=== PATIENT | male | born 1965 | race Caucasian/White ===

== ENCOUNTER 2018-08-08 14:42 | Emergency (ER) | payer OTHER, MEDICAID, SELFPAY ==
[2018-08-08 14:48] VITALS: BP 178/87; PULSE 89; RESP 18; TEMP 36.7; O2SAT 98; BMI 32.8
--- NOTE | 2018-08-08 14:52 | DI.RAD.S_ITS ---
PROCEDURE: XR SHOULDER RT MIN 2V INDICATIONS: PAIN, INJURY TECHNIQUE: 3 views of the shoulder were acquired. COMPARISON: None. FINDINGS: Bones: No fractures or dislocations. No suspicious bony lesions. Visualized ribs appear intact. Moderate joint degeneration Soft tissues: No suspicious soft tissue calcifications. IMPRESSION: Moderate right shoulder joint degeneration Dictated by: Choco Lutz M.D. on 08/08/2018 at 15:35 Approved by: Choco Lutz M.D. on 08/08/2018 at 15:36
[2018-08-08] MEDS: KETOROLAC 60 MG/2 ML VIAL IM (17:25)
[2018-08-08 17:29] VITALS: PULSE 70
[2018-08-08 17:36] VITALS: BP 159/93; PULSE 85; RESP 18; O2SAT 95
--- NOTE | 2018-08-08 21:09 | ED.UPPEXIN ---
HPI - Extremity Injury (Upper) <ROBERTO Aguilar - Last Filed: 08/08/18 21:14> General Chief Complaint: Extremity Injury, Upper Stated Complaint: Rt should pain Time Seen by Provider: 08/08/18 17:12 Source: patient Mode of arrival: ambulatory Limitations: no limitations History of Present Illness HPI narrative: The patient is a 52-year-old male with history of seasonal allergies with chief complaint of right shoulder pain. He states he was throwing a tire on a shot and felt a pop in his shoulder. He has a history of 2 rotator cuff repairs. He has not had anything for pain or applied ice. He complains of decreased range of motion. He denies any numbness or tingling. He denies any other injury. He states he knows he has a torn rotator cuff again. Related Data Previous Rx's Medication Instructions Recorded cetirizine 10 mg PO QDAY #90 tab 01/04/16 ketorolac 10 mg PO Q4-6H PRN 2 Days #8 tab 08/08/18 Allergies Allergy/AdvReac Type Severity Reaction Status Date / Time No Known Drug Allergies Allergy Verified 08/08/18 14:47 Review of Systems <ROBERTO Aguilar - Last Filed: 08/08/18 21:14> Review of Systems GENERAL: Denies chills, fatigue, malaise, fever, sweats. HEENT: Denies sinus pain, ear pain, sore throat, difficulty swallowing, dizziness. RESPIRATORY: Denies dyspnea, cough, wheezing, hemoptysis, sputum. CARDIOVASCULAR: Denies chest pain, palpitations, orthopnea, edema, GASTROINTESTINAL: Denies nausea, vomiting, abdominal pain, diarrhea, constipation, melena. : Denies dysuria, frequency, incontinence, hematuria, urinary retention. MUSCULOSKELETAL: See HPI SKIN: Denies rash, skin lesions, or other NEUROLOGIC: Denies weakness, headache, numbness, change in speech, confusion, seizures, incoordination. PSYCHIATRIC: No concerning psychosocial issues. 12 point review of systems is negative except for those stated above PFSH <ROBERTO Aguilar - Last Filed: 08/08/18 21:14> Medical History (Updated 08/08/18 @ 21:10 by ROBERTO Aguilar) Seasonal allergies (Acute) Surgical History (Updated 08/08/18 @ 21:10 by ROBERTO Aguilar) S/P rotator cuff repair (Acute) Social History Smoking Status: Current every day smoker Social History Smoking Status: Current every day smoker Exam <ROBERTO Aguilar - Last Filed: 08/08/18 21:14> Narrative Exam Narrative: GENERAL: This is a well-nourished, well-developed patient, no acute distress sitting in the hallway HEAD: Atraumatic. Normocephalic. No temporal or scalp tenderness. EYES: Pupils equal round and reactive. Extraocular motions intact. No scleral icterus. No injection or drainage. NECK: Trachea midline. No JVD or lymphadenopathy. Supple, nontender, no meningeal signs. CARDIOVASCULAR: Regular rate and rhythm RESPIRATORY: Clear to auscultation. Breath sounds equal bilaterally. No wheezes, rales, or rhonchi no cough. No increased respiratory effort. EXTREMITIES: Generalized pain to palpation right ankle. Patient has reduced extension to 90?. Able to abduct and adduct. Not able to perform empty can test. Positive radial pulse right hand. BACK: Nontender without deformity or crepitance. No flank tenderness. NEURO: AOx3. SKIN: No rash ecchymosis or abrasion noted right ankle. Initial Vital Signs Initial Vital Signs: Vital Signs Temperature 98.1 F 08/08/18 14:48 Pulse Rate 89 08/08/18 14:48 Respiratory Rate 18 08/08/18 14:48 Blood Pressure 178/87 H 08/08/18 14:48 Pulse Oximetry 98 08/08/18 14:48 <Maria Teresa Carpio DO - Last Filed: 08/09/18 07:35> Initial Vital Signs Initial Vital Signs: Vital Signs Temperature 98.1 F 08/08/18 14:48 Pulse Rate 89 08/08/18 14:48 Respiratory Rate 18 08/08/18 14:48 Blood Pressure 178/87 H 08/08/18 14:48 Pulse Oximetry 98 08/08/18 14:48 Course <ROBERTO Aguilar - Last Filed: 08/08/18 21:14> Orders Ordered: Discontinued Medications Ketorolac Tromethamine (Toradol) 60 mg IM NOW ONE Stop: 08/08/18 17:17 Last Admin: 08/08/18 17:25 Dose: 60 mg Vital Signs - 8 hr 08/08/18 14:48 08/08/18 17:29 08/08/18 17:36 Temperature 98.1 F Pulse Rate 89 85 Pulse Rate [Right Radial] 70 Respiratory Rate 18 18 Blood Pressure 178/87 H Blood Pressure [Right Arm] 159/93 H Pulse Oximetry 98 95 <Maria Teresa Carpio DO - Last Filed: 08/09/18 07:35> Orders Ordered: Discontinued Medications Ketorolac Tromethamine (Toradol) 60 mg IM NOW ONE Stop: 08/08/18 17:17 Last Admin: 08/08/18 17:25 Dose: 60 mg Vital Signs - 8 hr 08/08/18 14:48 08/08/18 17:29 08/08/18 17:36 Temperature 98.1 F Pulse Rate 89 85 Pulse Rate [Right Radial] 70 Respiratory Rate 18 18 Blood Pressure 178/87 H Blood Pressure [Right Arm] 159/93 H Pulse Oximetry 98 95 MDM - Extremity Injury (Upper) <ROBERTO Aguilar - Last Filed: 08/08/18 21:14> Imaging Data right shoulder: Radiologist's impression: Francis Nguyễn 52 M 1965 [place] [address] XRay Report Signed Patient: Francis Nguyễn WMR#: [id number] : 1965Acct:[id number] Age/Sex: 52 / MDate of Service: 08/08/18 Loc: ED Accession Number: [id number] Procedure: XR shoulder RT min 2V Ordering Provider: Maria Teresa Carpio D.O. PROCEDURE: XR SHOULDER RT MIN 2V INDICATIONS: PAIN, INJURY TECHNIQUE: 3 views of the shoulder were acquired. COMPARISON: None. FINDINGS: Bones: No fractures or dislocations. No suspicious bony lesions. Visualized ribs appear intact. Moderate joint degeneration Soft tissues: No suspicious soft tissue calcifications. IMPRESSION: Moderate right shoulder joint degeneration Dictated by: Choco Lutz M.D. on 08/08/2018 at 15:35 Approved by: Choco Lutz M.D. on 08/08/2018 at 15:36 MDM Narrative Medical decision making narrative: The patient is a 52-year-old male who presents with a right shoulder injury. He has reduced range of motion. He has a negative x-ray. Given his history, I am concerned about a repeat rotator cuff injury. He was given Toradol in the emergency department I gave a prescription thereof with a strict instructions to not to take any other anti-inflammatories or NSAIDs with it including Aleve ibuprofen etc. Encouraged patient to follow up with primary care provider. Discussed return precautions the emergency department including any acute concerns such as chest pain shortness of breath Discharge Plan Departure Patient Disposition: Home Clinical Impression: Acute pain of right shoulder Discharge Date/Time: 08/08/18 17:41 Interventions: ED Discharge Assessment Last Done: 08/08/18 17:41 Instructions: How To Perform RICE (Rest, Ice, Compress, Elevate), DI for Shoulder Pain Activity Restrictions/Additional Instructions: Your x-rays came back without fracture. However concerned about orders range of motion. Please follow up with your primary care provider regarding her decreased range of motion. I have also given you contact information for [facility]. Please use rest ice compression elevations well as the Toradol pain medication that I gave you. Do not combine it with any other anti-inflammatory medications. Please come back to the emergency department for any acute concerns that his chest pain shortness of breath etc. Prescriptions: New ketorolac 10 mg tablet 10 mg PO Q4-6H PRN (Reason: pain) 2 Days Qty: 8 RF: 0 No Action cetirizine 10 MG tablet 10 mg PO QDAY Qty: 90 RF: 3 Referrals: [facility] [Outside] <Maria Teresa Carpio DO - Last Filed: 08/09/18 07:35> [facility] ED Attending Ramandeep Attestation: I was immediately available in the department for consultation. This documentation has been reviewed and I agree with assessment and plan. Supervised by Maria Teresa Carpio DO
== END 2018-08-08 17:41 | disposition home or self-care (01) ==
PROVIDERS: Emergency Provider Nurse Practitioner Family
DX: M25.511 Pain in right shoulder (principal)
CPT/HCPCS: 73030; 96372; 99282; 99283; J1885

== ENCOUNTER 2019-01-25 10:16 | Day surgery (SDC) | payer OTHER, MEDICAID, SELFPAY ==
[2019-01-22 12:53] VITALS: BMI 32.2
[2019-01-25] VITALS (7 sets, daily range): BP systolic 138–149; BP diastolic 73–83; PULSE 65–78; RESP 12–18; TEMP 36.3–37.1; O2SAT 93–98; BMI 31.1
[2019-01-25] MEDS: LACTATED RINGERS 1,000 ML 42 ML IV ×2 (11:07→14:38)
--- NOTE | 2019-01-25 12:04 | PM.PREOP ---
Pre-operative Note Interval Note History & Physical reviewed/Exam performed by Physician: Yes Changes to H&P: No
[2019-01-25] MEDS: MIDAZOLAM 2 MG/2 ML VIAL IV (12:38)
[2019-01-25] MEDS: CEFAZOLIN 2 GM/100 ML FROZ.PIGGY IV (13:01)
--- NOTE | 2019-01-25 13:19 | P.PCN_ITS ---
Procedures Date/Time Date of procedure: 01/25/19 Time of procedure: 13:00 Nerve Block Time out performed: Yes Local anesthetic used: other (15mL 0.5 ropivacaine, 5mL 2 l* idocaine) Location of anesthetic used: interscalene Amount of anesthesia used (mL): 20 Nerve blocks: brachial plexus (interscalene) Procedure successful: Yes Patient tolerated procedure: well Complications: none Additional comments: RIGHT Brachial plexus nerve block for post operative pain management. Risks and benefits discussed, including bleeding, infection, intravascular injection, nerve damage, block failure. Standard ASA monitors, NC O2. Pt supine. Chloroprep site preparation, sterile technique. Brachial plexus identified with US guidance, traced from supraclavicular to interscalene. 1mL 2% lidocaine skin wheal. 22g x 50mm Pajunk advanced with in-plane US g uidance to brachial plexus. Negative aspiration. LA injected with intermittent negative aspiration. Good LA spread noted on US. No pain, no paraesthesia. Pt tolerated procedure well. Vital signs stable.
--- NOTE | 2019-01-25 13:47 | SUR.OPER ---
Lateral on padded OR bed with andrea bag positioner, head on pillow, gel axillary roll in place, bottom leg bent with gel pad under knee to foot, upper leg straight and supported with pillows. Operative arm secured in shoulder positioning suspension device. non-operative arm secured on padded arm board. Safety belt at hip, tape over blanket securing lower legs and at chest level over blanket.
[2019-01-25] MEDS: BUPIVACAINE 0.5% W/ EPI (PF) VIAL 30 ML INJ (13:55)
[2019-01-25] MEDS: SODIUM CHLORIDE IRRIG SOLUTION 3,000 ML, EPINEPHrine 1 MG IRR (14:46)
--- NOTE | 2019-01-25 15:31 | PM.OP.1 ---
Operative Date/Time/Diagnoses Date of procedure: 01/25/19 Time of procedure: 15:00 Pre-op diagnosis: 1. Rotator cuff tear of supraspinatus and subscapularis 2. Biceps dislocation Post-op diagnosis: same Procedure & Clinicians Procedure: 1. Arthroscopic rotator cuff repair of subscapularis and supraspinatus 2. Arthroscopic biceps tenodesis Same procedure as scheduled: Yes Indications: The patient is a 53-year-old man who has had a previous rotator cuff repair done elsewhere. This has gone on to fail. It appears that this was exclusively of the supraspinatus. On MRI he also has a biceps dislocation and tearing of the subscapularis. His he agreed to revision surgery after discussion of the risks benefits and alternatives. Risks discussed included but were not limited to: Failure to improve, stiffness, infection, nerve damage, deep venous thrombosis, pulmonary embolism, stroke, myocardial infarction, permanent paralysis and . Surgeon: Puma Doty Test Equipment Mechanic: Josue Olivo Click Yes if Unassisted: No Anesthesia Type: General, Peripheral nerve block and Local Operative Notes Findings: 1. Mild degeneration of glenohumeral cartilage specifically fraying of the glenoid 2. Mild fraying of the glenoid labrum 3. Intact glenohumeral ligaments with the exception of the superior glenohumeral ligament 4. Tearing of the superior portion of the subscapularis with dislocation of the biceps into the joint. 5. Dislocation of an intact biceps tendon 6. Tearing of the supraspinatus as a separate tear posterior to the insertion of the ?comma? tissue 7. Intact infraspinatus 8. Normal axillary pouch 9. 1 cm anterior to posterior with 2 cm medial-lateral dimension tear of the supraspinatus as measured in the bursa. 10. Slight curve to the acromion residual from prior surgery this was left intact 11. Acromioclavicular joint not visualized due to lack of preoperative symptoms 12. Examination under anesthesia notable for full range of motion and no evidence for pathologic laxity. Closure Type: primary Specimen(s): none sent Prosthetic devices, grafts, tissues, transplants, or devices: One Arthrex Swivelock anchor, one Mitek Healix Advance BR triple threaded anchor Applied: implant(s) Estimated Blood Loss (mL): 5 Blood products transfused: none Procedure in detail: The patient was seen in the preoperative area where he identified the right shoulder as the operative site this was marked with my initials. He received preoperative antibiotics and was taken to the operating room after receiving an interscalene block. He was placed on the operating room table in supine position where he underwent a general anesthetic. His shoulder was examined under anesthesia with the result given above. He was repositioned in the left lateral decubitus position with an axillary roll and padding for all pressure points. He was stabilized in this position using the andrea bag. Tape was applied to stabilize him as well. His right arm was prepared from the fingertips to the base of the neck with ChloraPrep and draped through sterile drapes. The arm was placed in 10 lb of balanced skin suspension. The subcutaneous landmarks were outlined on the skin with a marking pen. Portal sites were selected. The posterior portal was created for the arthroscope and diagnostic arthroscopy in the glenohumeral joint ensued. An anterior superior lateral portal was created with needle localization. An 8.5 mm cannula was placed in this portal. This portal was used to place a fiber stick suture with a loop around the biceps. It was then pulled through the biceps using a penetrating suture grasper just distal to the circumferential loop to complete and half racking stitch. The biceps was then cut and the suture was placed exterior to the cannula to protect it. The shaver was then inserted to debride the biceps stump and to prepare the lesser tuberosity. A FiberTape suture was then placed through the upper subscapularis tendon. A 2nd working cannula of 5.5 mm diameter was placed through an anterior portal again after localizing with a needle. This portal was used to retrieve the sutures and FiberTape and place the Swivelock anchor in the prepared upper tuberosity. Prior to placement the FiberTape and fiber stick sutures were placed through the eyelet of the anchor and the anchor was placed to both repair the subscap and tenodese the biceps. The arthroscope was then withdrawn from the joint and placed in the subacromial bursa through the posterior portal. The rotator cuff tear in the supraspinatus was identified from the bursal side and the working 8.5 mm cannula moved to a lateral portal in line with the tear. The greater tuberosity was prepared to bleeding bone using a shaver and a bur. The single Mitek Healix Advance BR anchor was then placed in the center of the exposed tuberosity. Two of the sutures were placed as side to side sutures and the 3rd suture was placed medially as a simple suture. The 2 side to side sutures were tied 1st followed by the simple suture over both of them to accomplish a grasping suture configuration. This completely repaired the supraspinatus tear and this was confirmed from the posterior portal, the lateral portal and from the intra-articular view. At this point all arthroscopic equipment was removed and closure of the portals performed with 4 0 Monocryl and Steri-Strips. A total of 20 mL of 0.5% Marcaine was injected with half of it into the subacromial space and half in the subcutaneous tissues. The wounds were dressed with sterile 4x4s, an ABD and adhesive dressings. The arm was placed in a shoulder immobilizer. The patient was allowed to awaken from anesthesia and taken to the recovery room in good condition having tolerated the procedure well. Complications: none Post-operative Condition: stable Disposition: PACU Plan for aftercare: The patient will be maintained on a standard subscapularis repair protocol. He will be discharged today.
== END 2019-01-25 15:59 | disposition home or self-care (01) ==
PROVIDERS: PCP Family Medicine; Visit Provider Orthopaedic Surgery
PROC: (CPT 29827; principal; 2019-01-25 12:45)
DX: S46.011A Strain of muscle(s) and tendon(s) of the rotator cuff of right shoulder, initial encounter (principal); G89.18 Other acute postprocedural pain; I10 Essential (primary) hypertension; E78.5 Hyperlipidemia, unspecified; F17.210 Nicotine dependence, cigarettes, uncomplicated
CPT/HCPCS: 29827; 29828; 64415; J0171; J0690; J1100; J2250; J2405; J2704; J3010

== ENCOUNTER → 2020-08-08 11:56 | Outpatient (CLI) | payer OTHER, MEDICAID, SELFPAY ==
--- NOTE | 2020-08-08 | DI.MRI.S_ITS ---
PROCEDURE: MR LUMBAR SPINE WO CON INDICATIONS: Radiculopathy, lumbar region,Strain of muscle(s) a TECHNIQUE: Noncontrast sagittal T1 spin echo and T2 fast echo, sagittal STIR, axial T1 and T2 fast spin echo through the lumbar spine. In cases with scoliosis, additional coronal T2 fast spin echo may be performed. COMPARISON: CR, L-SPINE 2-3 VIEWS, 02/27/2015, 20:26. FINDINGS: Image quality: Excellent. Alignment and Curvature: There is normal bony alignment. Bone Marrow: Marrow is of normal overall signal. Minimal reactive endplate changes are present at L1-L2, L2-3, L3-4. No acute vertebral body compression fractures. Spinal Cord: Conus medullaris terminates at the L1 level. Visualized cord demonstrates normal signal. There is an overall appearance of congenital spinal stenosis. Paraspinous Soft Tissues: No paravertebral masses. Increased T2 signal is present within the left kidney most suggestive of cyst. Discs: Moderate to severe desiccation is present at L1-L2, L2-3, mild to moderate throughout the remainder of the lumbar spine. L1-L2: Mild disc bulge with moderate spinal stenosis. Asrc-yj-rejlagbr bilateral foraminal narrowing with facet and ligamentum flavum hypertrophy are are present. Epidural lipomatosis is present. L2-L3: Mild disc bulge with severe spinal stenosis and minimal canal compression. Minimal bilateral foraminal narrowing with facet and ligamentum flavum hypertrophy. Epidural lipomatosis is present. L3-L4: Mild disc bulge with severe spinal stenosis and moderate canal compression. Moderate bilateral foraminal narrowing with facet and ligamentum flavum hypertrophy. Epidural lipomatosis is present. L4-L5: Mild disc bulge with severe spinal stenosis and canal compression. [id number] bilateral foraminal narrowing particularly through the subarticular recesses bilaterally. Facet and ligamentum flavum hypertrophy as well as epidural lipomatosis are present. L5-S1: Mild disc bulge with severe spinal stenosis. Moderate bilateral foraminal narrowing with facet and ligamentum flavum hypertrophy. Prominent epidural lipomatosis is present. IMPRESSION: 1. Significant multilevel spinal stenosis secondary to disc bulge with contributing effect of facet/ligamentum flavum arthropathy, epidural lipomatosis as well as what appears to be a component of underlying congenital stenosis. 2. Multilevel foraminal narrowing overall [id number] and most notable at L3-4 and L5-S1 foramina secondary to facet arthropathy. Dictated by: Kim Zaman, M.D. on 08/08/2020 at 15:08 Approved by: Kim Zaman M.D. on 08/08/2020 at 15:14
--- NOTE | 2020-08-08 | DI.MRI.S_ITS ---
PROCEDURE: MR SHOULDER LT WO CON INDICATIONS: Radiculopathy, lumbar region,Strain of muscle(s) TECHNIQUE: Noncontrast oblique coronal T2 fast spin echo with fat saturation, oblique sagittal T1 spin echo and T2 fast spin echo with fat saturation, axial T1 spin echo and T2 fast spin echo with fat saturation through the shoulder. COMPARISON: None. FINDINGS: Rotator cuff: 1.1 cm full-thickness tear involving the supraspinatus tendon as measured on sagittal pulse sequences. This measures 6 mm on coronal pulse sequences, for example image 9/8. Background supraspinatus tendinopathy. There is also infraspinatus tendinopathy and thickening with low-grade bursal and articular surface fraying. The teres minor appears intact. High-grade partial-thickness articular sided tear of the subscapularis tendon greater than 50% of tendon thickness. Atrophy of the subscapularis muscle is present. There is diffuse fatty infiltration of the rotator cuff muscles. Bones and bursae: No bone marrow contusions or fractures. Severe hypertrophic acromioclavicular joint degeneration. Acromion demonstrates conventional anatomy, without an os acromiale. Small joint effusion. Capsule and soft tissues: Labrum: Mild fraying of the superior labrum. Prominent truncation of the posterosuperior labral segment although this may be chronic tear. There is adjacent mild glenoid rim sclerosis and spurring. Biceps: Medial subluxation of the long head biceps tendon, and severe tendinopathy of the intra-articular segment. Rotator interval: Near complete obliteration of the subcoracoid fat signal intensity. Coracohumeral ligament: Intact. IMPRESSION: Full-thickness rotator cuff tear as above. Atrophy of the subscapularis muscle. Small joint effusion. Chronic appearing tear of the posterosuperior labrum. Marked medial subluxation of the long head biceps tendon, with severe tendinopathy. No definite complete rupture. Dictated by: Choco Lutz M.D. on 08/08/2020 at 14:53 Approved by: Choco Lutz M.D. on 08/08/2020 at 15:01
== END ==
PROVIDERS: PCP Family Medicine; Referring Provider Family Medicine; Visit Provider Family Medicine
DX: M51.16 Intervertebral disc disorders with radiculopathy, lumbar region (principal); M19.012 Primary osteoarthritis, left shoulder; M47.26 Other spondylosis with radiculopathy, lumbar region; M47.27 Other spondylosis with radiculopathy, lumbosacral region; M48.07 Spinal stenosis, lumbosacral region; M48.061 Spinal stenosis, lumbar region without neurogenic claudication; S46.012D Strain of muscle(s) and tendon(s) of the rotator cuff of left shoulder, subsequent encounter; S46.112A Strain of muscle, fascia and tendon of long head of biceps, left arm, initial encounter; M25.412 Effusion, left shoulder; X58.XXXD Exposure to other specified factors, subsequent encounter
CPT/HCPCS: 72148; 73221

== ENCOUNTER → 2024-06-03 07:48 | Outpatient (CLI) | payer OTHER, SELFPAY ==
--- NOTE | 2024-06-03 07:50 | DI.NM.S_ITS ---
PROCEDURE: NM CAIT PERF SPECT R&S PHARM Rest and pharmacological stress myocardial perfusion SPECT with gated imaging and ejection fraction RADIOPHARMACEUTICAL: 12.3 mCi Tc-99m tetrafosmin IV at rest and 25.7 mCi Tc-99m tetrafosmin IV at peak effect of pharmacological stress. 2-iaa-mleaosff was performed. INDICATIONS: BRACHIOCEPHALIC STENOSIS - SCREEN FOR OTHER PAD PQRS ATTESTATIONS: Measure 322 - Is this imaging test primarily performed on a low-risk surgery patient for preoperative evaluation within 30 days preceding their low-risk non-cardiac surgery? Low-risk surgery is defined as cardiac or myocardial infarction less than 1%, including (but not limited to) endoscopic procedures, superficial procedures, cataract surgery, and excisional breast surgery: Answer: No Measure 323 - Is this imaging test performed primarily for the monitoring of an asymptomatic patient who had percutaneous coronary intervention on the visit date or within 2 years of the visit date? Answer: No Measure 324 - Is this imaging test performed primarily for the initial detection and risk assessment on an asymptomatic, low coronary heart disease patient? Low CHD risk definition = clinicians should consider the maximum number of available patient factors used to estimate risk based on Pierce (ATP III criteria), typically age, gender, diabetes, smoking status, and use of blood pressure medication, and integrate age appropriate estimates for missing elements, such as LDL or standard blood pressure. Answer: No TECHNIQUE: Radiopharmaceutical was injected at peak stress test, and also at rest. SPECT images were obtained. SPECT myocardial perfusion images were displayed in short axis, horizontal long axis, and vertical long axis views. Gated images were reviewed using [employer] software. COMPARISON: None. CARDIAC STRESS: A pharmacologic stress test was performed under the supervision of an attending staff, using an infusion of 0.4 mg of Lexiscan. Hemodynamic data: There is normal blood pressure and heart rate response to pharmacologic stress. Symptoms: The patient denied anginal chest pain. Aminophylline: None EKG: No diagnostic changes of ischemia; no ectopy. FINDINGS: Raw data: There is good myocardial uptake of radiotracer. No significant motion artifacts. Ljzf-dt-wcevn ratio is 0.25 (normal is less than 0.38 for tetrafosmin tracer). Left ventricle function: Gated images demonstrate normal left ventricular wall thickening. No segmental wall motion abnormalities. No transient ischemic dilation; TID is 1.21 (normal less than 1.3). Left ventricle resting end diastolic volume is 122 mL. Left ventricle stress ejection fraction is 73; normal range is above 45%. Myocardial perfusion: Rest images had moderate hypoperfusion in the basal to mid inferior segment. No other perfusion defects noted. Stress images demonstrated a slight improvement in the perfusion at the basal to mid inferior segment. Prone images had no perfusion defects. This most likely represents attenuation. IMPRESSION: 1. Negative Lexiscan myocardial perfusion scan for ischemia and infarction. Dictated by: Major Isaacs M.D. on 06/03/2024 at 16:34 Approved by: Major Isaacs M.D. on 06/03/2024 at 16:36
--- NOTE | 2024-06-03 07:51 | DI.US.S_ITS ---
PROCEDURE: US ART LOW EXT BILAT W/JAYLYN INDICATIONS: BRACHIOCEPHALIC STENOSIS - SCREEN FOR OTHER PAD TECHNIQUE: Color and pulse Doppler interrogation was performed of both lower extremity arterial systems, with image documentation. COMPARISON: None. FINDINGS: Right lower extremity: Common femoral artery: 72 cm/sec, with triphasic flow. Deep femoral artery: 53 cm/sec, with monophasic flow. Proximal superficial femoral artery: 51 cm/sec, with biphasic flow. Mid superficial femoral artery: 51 cm/sec, with biphasic flow. Distal superficial femoral artery: 38 cm/sec, with biphasic flow. Popliteal artery: 42 cm/sec, with monophasic flow. Posterior tibial artery: 32 cm/sec, with monophasic flow. Anterior tibial artery/dorsalis pedis: 20 cm/sec, with biphasic flow. Alvarez-scale imaging description: Moderate atherosclerotic disease present. JAYLYN: 0.79, with blunted waveforms. Left lower extremity: Common femoral artery: 100 cm/sec, with triphasic flow. Deep femoral artery: 54 cm/sec, with biphasic flow. Proximal superficial femoral artery: 102 cm/sec, with triphasic flow. Mid superficial femoral artery: 70 cm/sec, with biphasic flow. Distal superficial femoral artery: 52 cm/sec, with biphasic flow. Popliteal artery: 45 cm/sec, with biphasic flow. Posterior tibial artery: 43 cm/sec, with biphasic flow. Anterior tibial artery/dorsalis pedis: 46 cm/sec, with biphasic flow. Alvarez-scale imaging description: Moderate atherosclerotic disease present. JAYLYN: 0.98. Normal waveforms. Bilateral venous stasis is noted. IMPRESSION: Hemodynamically significant stenosis in the right superficial to popliteal artery. Right-sided JAYLYN of 0.79, abnormal. No hemodynamically significant stenosis in the left lower extremity. Normal JAYLYN (0.98). Bilateral venous stasis noted. Dictated by: David Day M.D. on 06/03/2024 at 15:41 Approved by: David Day M.D. on 06/03/2024 at 15:46
--- NOTE | 2024-06-03 07:51 | DI.ECHO.S_ITS ---
[facility] : : [id number] : : [place] : : [id number] : : Phone: [phone] Echocardiogram Report + + :Name: JACKLYN CHÁVEZ Study Date: 06/03/2024 Height: 67 in : :[facility] ReadingLocation: Weight: 218 lb : : Gender: Male BSA: 2.1 m2 : :: 1965 Age: 58 yrs BP: 137/72 mmHg: :Reason For Study: SHORTNESS OF BREATH : :Ordering Physician: JOHN, : :JARAD Performed By: Justin Manning : :Referring: JARAD LOPEZ : + + Interpretation Summary Normal biventricular size and systolic function. LVEF is 55-60%. LA appears normal sized. RA appears borderline dilated in certain views. No significant valvular pathology is noted. Other findings as below. No previous echo images are available for comparison. Procedure: A two-dimensional transthoracic echocardiogram with color flow and Doppler was performed. The study quality was technically good. There is no prior echocardiogram noted for this patient. The patient was in normal sinus rhythm during the exam. Left Ventricle: The left ventricle is normal in size. There is normal left ventricular wall thickness. There is no ventricular septal defect visualized. The ejection fraction is estimated to be 55-60%. There are no focal wall motion abnormalities. Diastolic parameters suggest probable normal left ventricular diastolic function and normal filling pressures. Right Ventricle: The right ventricle is normal in size and function. Atria: The left atrial size is normal. The right atrium is borderline dilated. There is no Doppler evidence for an interatrial shunt. Mitral Valve: The mitral valve leaflets appear normal. There is no evidence of stenosis, fluttering, or prolapse. There is trace mitral regurgitation. Aortic Valve: The aortic valve is trileaflet. The aortic valve is mildly calcified. The aortic valve opens well. No aortic regurgitation is present. Tricuspid Valve: The tricuspid valve leaflets are thin and pliable. There is trace tricuspid regurgitation. Pulmonary artery pressures cannot be estimated because of the lack of a measurable TR jet velocity. Pulmonic Valve: The pulmonic valve leaflets are thin and pliable; valve motion is normal. There is no pulmonic valvular regurgitation. Great Vessels: The aortic root is normal size. The dimensions of the ascending aorta are normal. The pulmonary artery is normal size. The IVC is of normal diameter and collapses greater than 50% with a sniff. This suggests a low right atrial pressure of 3 mm Hg. Pericardium/ Pleura There is no pericardial effusion. There is no pleural effusion. MMode/2D Measurements & Calculations LVIDd: 5.2 cm LVOT diam: 2.0 cm LVIDs: 3.6 cm Ao root diam: 3.0 cm FS: 31.3 % asc Aorta Diam: 3.0 cm EPSS: 0.82 cm IVSd: 0.94 cm LVPWd: 0.88 cm LV wen. diameter/BSA (cm/m^2): 2.5 LV sys. diameter/BSA (cm/m^2): 1.7 LA A2 area: 20.1 cm2 RA long axis: 4.7 cm LA A4 area: 18.0 cm2 RA area: 17.4 cm2 LA length (vol): 5.2 cm RA vol: 55.2 ml LA vol: 58.9 ml RA : 26.3 ml/m2 LA vol index: 28.1 ml/m2 IVC diam: 1.8 cm RVD1 (basal): 3.9 cm RVD2 (mid): 2.8 cm Doppler Measurements & Calculations Ao V2 max: 243.3 cm/sec LVOT Max Duke: 122.4 cm/sec Ao V2 mean: 154.6 cm/sec LV V1 max P.0 mmHg Ao max P.7 mmHg LV V1 VTI: 24.6 cm Ao mean P.8 mmHg FLOYD(I,D): 1.7 cm2 Ao V2 VTI: 43.6 cm FLOYD(V,D): 1.5 cm2 sev ratio: 0.56 FLOYD indexed to BSA (cm^2/m^2): 0.81 MV E max duke: 82.3 cm/sec TR max duke: 262.6 cm/sec MV A max duke: 75.2 cm/sec TR max P.6 mmHg MV E/A: 1.1 PA V2 max: 60.1 cm/sec Med Peak E' Duke: 8.7 cm/sec PA V2 mean: 41.9 cm/sec E/E' med: 9.4 PA mean P.80 mmHg Lat Peak E' Duke: 9.3 cm/sec PA pr(Accel): 25.9 mmHg E/E' lat: 8.8 E/e' average: 9.1 MV dec time: 0.23 sec SV(LVOT): 73.6 ml Reading Physician:02:10 PM
== END ==
PROVIDERS: PCP Nurse Practitioner; Referring Provider Internal Medicine Cardiovascular Disease; Visit Provider Internal Medicine Cardiovascular Disease
DX: I70.201 Unspecified atherosclerosis of native arteries of extremities, right leg (principal); I87.2 Venous insufficiency (chronic) (peripheral); R06.02 Shortness of breath
CPT/HCPCS: 78452; 93017; 93306; 93922; 93925; A9502; J2785